=== PATIENT | female | born 1940 | race Caucasian/White ===

== ENCOUNTER 2017-12-29 18:40 | Emergency (ER) | payer OTHER, MEDICARE ==
[2017-12-29] MEDS: SOD CHLORIDE 0.9% 1,000 ML IV (19:04)
[2017-12-29] MEDS: ONDANSETRON 4 MG INJ IV (19:04)
[2017-12-29 19:05] LABS: ADD MAN DIFF? NO
[2017-12-29 19:06] LABS: BASOPHIL # 0.1 10^3/ul (0.0-0.1); BASOPHILS % 0.6 % (0.0-2.0); EOSINOPHILS # 0.2 10^3/ul (0.0-0.5); EOSINOPHILS % 2.6 % (0.0-7.0); HEMOGLOBIN 14.1 g/dl (12.0-16.0); LYMPHOCYTES # 2.9 10^3/ul (0.8-2.9); LYMPHOCYTES % 34.4 % (15.0-51.0); MEAN CORPUSCULAR HEMOGLOBIN 30.4 pg (29.0-33.0); MEAN CORPUSCULAR HGB CONC 32.8 g/dl (32.0-37.0); MEAN CORPUSCULAR VOLUME 92.7 fl (82.0-101.0); MEAN PLATELET VOLUME 11.9 fl (7.4-10.4); MONOCYTE # 0.7 10^3/ul (0.3-0.9); MONOCYTES % 8.5 % (0.0-11.0); NEUTROPHIL # 4.4 10^3/ul (1.6-7.5); NEUTROPHILS % 53.4 % (39.0-77.0); PLATELET COUNT 260 10^3/UL (140-415); RED BLOOD COUNT 4.64 10^6/ul (4.20-5.40)
[2017-12-29 19:06] LABS: WHITE BLOOD COUNT 8.3 10^3/ul (4.8-10.8)
[2017-12-29] MEDS: METOCLOPRAMIDE 10 MG INJ IV (19:10)
[2017-12-29] MEDS: morphine 4 MG/ML VIAL IV (19:10)
[2017-12-29 19:34] LABS: ALANINE AMINOTRANSFERASE 29 IU/L (13-69); ALBUMIN 4.3 g/dl (3.3-4.9); ALBUMIN/GLOBULIN RATIO 1.43; ALKALINE PHOSPHATASE 88 IU/L (42-121); ANION GAP 12 (8-16); ASPARTATE AMINO TRANSFERASE 29 IU/L (15-46); BILIRUBIN,INDIRECT 0.5 mg/dl (0-1.1); BILIRUBIN,TOTAL 0.5 mg/dl (0.2-1.3); BLOOD UREA NITROGEN 15 mg/dl (7-20); CALCIUM 9.9 mg/dl (8.4-10.2); CARBON DIOXIDE 30 mmol/L (21-31); CHLORIDE 105 mmol/L (97-110); CREATININE 0.72 mg/dl (0.44-1.00); GLUCOSE 108 mg/dl (70-220); LIPASE 86 U/L (23-300); POTASSIUM 4.2 mmol/L (3.5-5.1); SODIUM 143 mmol/L (135-144); TOTAL PROTEIN 7.3 g/dl (6.1-8.1)
[2017-12-29 19:45] LABS: TROPONIN-I < 0.010 ng/ml (0.000-0.120)
[2017-12-29 19:54] LABS: ADD UMIC YES; UR AMORPHOUS CRYSTAL MODERATE /HPF (NONE SEEN); UR ASCORBIC ACID NEGATIVE (NEGATIVE); UR BILIRUBIN (Dip) NEGATIVE (NEGATIVE); UR BLOOD (Dip) NEGATIVE (NEGATIVE); UR CLARITY TURBID (CLEAR); UR COLOR YELLOW (YELLOW); UR GLUCOSE (Dip) NEGATIVE (NEGATIVE); UR KETONES (Dip) TRACE mg/dL (NEGATIVE); UR LEUKOCYTE ESTERASE (Dip) NEGATIVE Leu/ul (NEGATIVE); UR MUCUS FEW /HPF (NONE SEEN); UR NITRITE (Dip) NEGATIVE (NEGATIVE); UR RBC 2 /HPF (0-5); UR SPECIFIC GRAVITY (Dip) 1.016 (1.003-1.030); UR TOTAL PROTEIN (Dip) NEGATIVE (NEGATIVE); UR UROBILINOGEN (Dip) NEGATIVE (NEGATIVE); UR WBC 0 /HPF (0-5)
[2017-12-29] MEDS: MAGNESIUM CITRATE 300 ML BTL PO (22:11)
[2017-12-29] MEDS: KETOROLAC 30 MG INJ IV (22:11)
== END 2017-12-29 22:56 | disposition home or self-care (01) ==
LOC: E/R 18:40
DX: K59.00 Constipation, unspecified (principal); R11.10 Vomiting, unspecified; K43.9 Ventral hernia without obstruction or gangrene; R40.2142 Coma scale, eyes open, spontaneous, at arrival to emergency department; R40.2252 Coma scale, best verbal response, oriented, at arrival to emergency department; R40.2362 Coma scale, best motor response, obeys commands, at arrival to emergency department; I10 Essential (primary) hypertension; Z87.891 Personal history of nicotine dependence
CPT/HCPCS: 36415; 74176; 80053; 81001; 83690; 84484; 85025; 93005; 96361; 96374; 96375; 99285-25